=== PATIENT | female | born 1950 | race Hispanic/Latino ===

== ENCOUNTER 2019-01-08 13:27 | Outpatient (CLI) | payer BC, MEDICARE | END 2019-01-08 13:28 | disposition home or self-care (01) | LOC: RAD 13:27 ==

== ENCOUNTER 2019-01-22 14:27 | Outpatient (CLI) | payer BC, MEDICARE | END 2019-01-22 14:28 | disposition home or self-care (01) | LOC: RAD 14:27 ==

== ENCOUNTER 2019-02-04 10:01 | Outpatient (CLI) | payer BC, MEDICARE | END 2019-02-04 10:02 | disposition home or self-care (01) | LOC: RAD 10:01 ==

== ENCOUNTER 2019-03-09 11:48 | Outpatient (CLI) | payer BC, MEDICARE | END 2019-03-09 11:49 | disposition home or self-care (01) | LOC: RAD 11:48 ==